=== PATIENT | male | born 1990 | race Caucasian/White ===

== ENCOUNTER 2022-03-05 14:35 | Emergency (ER) | payer OTHER ==
[~2022-03-05] VITALS: Ht 193 cm; Wt 111.3 kg
[2022-03-05] MEDS ORDERED: METH-1164 PO (15:49)
[2022-03-05] MEDS ORDERED: IBUP200T46 PO (15:49)
[2022-03-05 17:39] VITALS: BP 143/71
== END 2022-03-05 17:40 | disposition home or self-care (01) ==
LOC: M ED 14:35
DX: S02.2XXA Fracture of nasal bones, initial encounter for closed fracture (principal); Y99.1 Military activity; W50.0XXA Accidental hit or strike by another person, initial encounter

== ENCOUNTER → 2022-03-20 | Outpatient (CLI) | payer OTHER ==
[~2022-03-20] MED LIST: IBUP200T46 PO; METH-1164 PO
== END ==
LOC: M PLAIMG 07:38
PROVIDERS: ATTEND Physician Assistant
DX: M51.26 Other intervertebral disc displacement, lumbar region (principal)